=== PATIENT | female | born 1940 | race Caucasian/White ===

== ENCOUNTER 2017-03-17 10:02 | Emergency (ER) | payer MEDICARE ==
[~2017-03-17] VITALS: Ht 162.6 cm; Wt 71.0 kg
[2017-03-17] MEDS ORDERED: LISINOPRIL10 MG PO (10:28)
[2017-03-17 11:01] LABS: URINE BILIRUBIN - DIPSTICK NEGATIVE (NEGATIVE); URINE BLOOD DIPSTICK SMALL (NEGATIVE); URINE COLOR YELLOW; URINE GLUCOSE - DIPSTICK NEGATIVE (NEGATIVE); URINE KETONE NEGATIVE (NEGATIVE); URINE LEUK ESTERASE TRACE (NEGATIVE); URINE NITRITE - DIPSTICK NEGATIVE (Negative); URINE PROTEIN - DIPSTICK 30 mg/dL (NEG-TRACE); URINE SPECIFIC GRAVITY 1.025; URINE UROBILINOGEN - DIPSTICK 0.2 E.U./dL (0.2)
[2017-03-17 11:12] LABS: URINE CLARITY SL CLOUDY
[2017-03-17 11:14] LABS: URINE EPITHELIAL CELLS FEW EPI/hpf (0-FEW); URINE MUCUS MODERATE hpf (NONE-FEW); URINE WBC 0-2 WBC/hpf (0-5)
[2017-03-17] MEDS ORDERED: PYRIDIUM200 MG PO (12:29)
[2017-03-17] MEDS ORDERED: KEFLEX500 MG PO (12:29)
[2017-03-17 12:38] VITALS: BP 138/81
== END 2017-03-17 12:38 | disposition home or self-care (01) ==
LOC: ED 10:02
PROVIDERS: Emergency Medicine
DX: N39.0 Urinary tract infection, site not specified (principal); R30.0 Dysuria; R35.0 Frequency of micturition; R50.9 Fever, unspecified